=== PATIENT | female | born 1980 | race Caucasian/White ===

== ENCOUNTER → 2016-09-07 | Outpatient (CLI) | payer OTHER | LOC: YCFC.O 15:16 | PROVIDERS: ATTEND Nurse Practitioner Family | DX: J35.8 Other chronic diseases of tonsils and adenoids (principal); J02.9 Acute pharyngitis, unspecified; R50.9 Fever, unspecified ==

== ENCOUNTER 2017-03-31 10:00 | Emergency (ER) | payer OTHER ==
[2017-03-31 10:19] VITALS: TEMP 98.7
--- NOTE | 2017-03-31 10:21 | ED.PDOC ---
History of Present Illness - General Chief Complaint: Abdominal Pain Stated Complaint: R flank discomfort Time Seen by Provider: 03/31/17 10:11 Information Source: patient Exam Limitations: no limitations - History of Present Illness Initial Comments: Ms. arcelia Lara 36 y/o female stated that she stared having achy/sharp flank pain 3 days ago and felt warm and feverish then decided to goto the doctor for possible bladder infection and was prescribed antibiotics Macrobid which temporarily made her feel better but today pain recurred stating flank pain radiating to back went back to her md for re check but was sent over here to ER. Abdominal Pain Onset Location: RLQ, flank - right Pain Radiation: RLQ Quality: moderate, sharpness Timing/Duration: other - 3 days ago Improving Factors: nothing Worsening Factors: eating Associated Symptoms: fever/chills, nausea/vomiting - x 2 Review of Systems - Review of Systems Constitutional: States: no symptoms reported EENTM: States: no symptoms reported Respiratory: States: no symptoms reported Cardiology: States: no symptoms reported Gastrointestinal/Abdominal: States: see HPI Genitourinary: States: see HPI Musculoskeletal: States: no symptoms reported Skin: States: no symptoms reported Neurological: States: no symptoms reported Past Medical History (General) - Patient Medical History Hx Seizures: No Hx Stroke: No Hx Asthma: No Hx of COPD: No Hx Cardiac Disorders: No Hx Congestive Heart Failure: No Hx Pacemaker: No Hx Hypertension: No Hx Diabetes: No Hx MRSA: No Surgical History: cholecystectomy, other - hysterectomy,oral surgery - Vaccination History Hx Tetanus, Diphtheria Vaccination: No Hx Influenza Vaccination: No Hx Pneumococcal Vaccination: No - Social History Hx Tobacco Use: No Hx Alcohol Use: No Hx Substance Use: No Hx Substance Use Treatment: No Hx Depression: No Hx Physical Abuse: No Hx Emotional Abuse: No - Activities of Daily Living Patient Lives Alone: No - family - Female History Patient is a Female of Child Bearing Age (10 -59 yrs old): No - hysterectomy Hx Last Menstrual Period: 09/06/12 Patient : No Family Medical History - Family History Mother Family History: Unknown Living Status: Unknown Hx Family Hypertension: Yes - parents Hx Cardiac Disease: Yes - dad Hx Family Diabetes: Yes - dad Physical Exam - Physical Exam General Appearance: Alert, Anxious, No apparent distress Eyes, Ears, Nose, Throat Exam: PERRL/EOMI, normal ENT inspection, pharynx normal Neck: non-tender, full range of motion, supple Respiratory: chest non-tender, lungs clear, normal breath sounds Cardiovascular/Chest: normal peripheral pulses, regular rate, rhythm, no edema, no murmur Peripheral Pulses: No deficit Gastrointestinal/Abdominal: normal bowel sounds, soft, no organomegaly, tenderness - RLQ Back Exam: CVA tenderness (R) Neurologic: alert, normal mood/affect, oriented x 3 Progress - Progress Progress: 03/31/17 11:27 Vital Signs - 8 hr 03/31/17 10:14 Temperature 98.7 F Pulse Rate [ 85 Left Radial] Respiratory 18 Rate Blood Pressure 135/97 [Left Arm] O2 Sat by Pulse 98 Oximetry - Results/Orders Results/Orders: Laboratory Tests 03/31/17 03/31/17 10:35 10:35 WBC 3.4 L RBC 4.41 Hgb 13.2 Hct 39.5 MCV 89.6 MCH 30.0 MCHC 33.5 RDW 12.8 Plt Count 220 MPV 7.1 L Absolute Neuts (auto) 2.40 Absolute Lymphs (auto) 0.70 L Absolute Monos (auto) 0.20 Absolute Eos (auto) 0.10 Absolute Basos (auto) 0.00 Neutrophils % 71.3 Lymphocytes % 19.1 L Monocytes % 6.2 Eosinophils % 2.6 Basophils % 0.8 Sodium 139 Potassium 4.2 Chloride 107 Carbon Dioxide 24 Anion Gap 12.2 BUN 11 Creatinine 0.73 BUN/Creatinine Ratio 15.1 Random Glucose 92 Serum Osmolality 276.6 Calcium 9.3 Total Bilirubin 1.0 AST 19 ALT 25 Alkaline Phosphatase 69 Serum Total Protein 7.6 Albumin 4.3 Globulin 3.3 Albumin/Globulin Ratio 1.3 Lipase 22 Laboratory Tests 03/31/17 03/31/17 03/31/17 10:35 10:35 11:36 WBC 3.4 L RBC 4.41 Hgb 13.2 Hct 39.5 MCV 89.6 MCH 30.0 MCHC 33.5 RDW 12.8 Plt Count 220 MPV 7.1 L Absolute Neuts (auto) 2.40 Absolute Lymphs (auto) 0.70 L Absolute Monos (auto) 0.20 Absolute Eos (auto) 0.10 Absolute Basos (auto) 0.00 Neutrophils % 71.3 Lymphocytes % 19.1 L Monocytes % 6.2 Eosinophils % 2.6 Basophils % 0.8 Sodium 139 Potassium 4.2 Chloride 107 Carbon Dioxide 24 Anion Gap 12.2 BUN 11 Creatinine 0.73 BUN/Creatinine Ratio 15.1 Random Glucose 92 Serum Osmolality 276.6 Calcium 9.3 Total Bilirubin 1.0 AST 19 ALT 25 Alkaline Phosphatase 69 Serum Total Protein 7.6 Albumin 4.3 Globulin 3.3 Albumin/Globulin Ratio 1.3 Lipase 22 Urine Color Yellow Urine Appearance Clear Urine pH 5.0 Ur Specific Gill <= 1.005 Urine Protein Negative Urine Glucose (UA) Negative Urine Ketones 15 H Urine Blood Negative Urine Nitrite Negative Urine Bilirubin Negative Urine Urobilinogen 0.2 Ur Leukocyte Esterase Negative Urine RBC 0 Urine WBC 0 Ur Epithelial Cells 0-1 Amorphous Sediment 1+ Urine Bacteria 0 - EKG/XRAY/CT CT Ordered: Yes - abd/p-no acute bowel abnormalities;cyst/hemangioma-liver ff up with primary Departure - Departure Clinical Impression: Flank pain, acute Abdominal pain Qualifiers: Abdominal location: right lower quadrant Qualified Code(s): R10.31 - Right lower quadrant pain Time of Disposition: 11:58 Disposition: Discharge to Home or Self Care Departure Forms: ED Discharge - Pt. Copy, Patient Portal Self Enrollment Instructions: DI for Abdominal Pain-Adult Diet: full liquid diet - then to advance as tolerated;Avoid greasy ,spicy.dairy foods until better Referrals: Tomasa Daigle NP [Primary Care Provider] - 1-2 Weeks Prescriptions: Promethazine HCl 50 mg PO Q6HR PRN #20 tab PRN Reason: Nausea Tramadol HCl 100 mg PO Q6HR PRN #20 tab PRN Reason: Pain Home Medications: Ambulatory Orders Epinephrine [Epipen 2-Ceasar] 0.3 mg IJ PRN #0 ml 09/17/12 Cetirizine HCl Syrup [Zyrtec] 10 mg PO DAILY PRN 03/31/17 Promethazine HCl 50 mg PO Q6HR PRN #20 tab 03/31/17 Tramadol HCl 100 mg PO Q6HR PRN #20 tab 03/31/17 Additional Instructions: RETURN TO EMERGENCY ROOM NEEDED;FOLLOW UP WITH PRIMARY MD 04/02/2017 call for appointment if needed
[2017-03-31] MEDS ORDERED: KETOROLAC TROMETHAMINE INJ 30 MG/ML VIAL IV ONE (10:26)
[2017-03-31] MEDS ORDERED: LACTATED RINGERS 1,000 ML IVS ONE (10:26)
[2017-03-31] MEDS ORDERED: ONDANSETRON INJ 4 MG/2 ML VIAL IV ONE (10:36)
--- NOTE | 2017-03-31 11:12 | CT ---
EXAM DESCRIPTION: Abdomen/Pelvis w/Contrast CLINICAL HISTORY: 36 years,Female,pain COMPARISON: None TECHNIQUE: Multiple axial tomographic images were obtained of the abdomen and pelvis with IV contrast and oral contrast. Then reconstructed in sagittal and coronal planes. This exam was performed using radiation doses that are As Low As Reasonably Achievable (ALARA). FINDINGS: The kidneys are unremarkable The adrenal glands are unremarkable . The spleen is unremarkable. The liver demonstrates 2 subcentimeter low-density lesions in the right lobe one anterior one posterior measuring about 7 mm.. The pancreas is unremarkable. The gallbladder surgically absent with some left intrahepatic ductal dilatation up to 5 mm. Which is most likely postsurgical. The included bowel unremarkable including the appendix. There is no free air, free fluid, masses, or significant adenopathy. Surrounding soft tissues and bony elements unremarkable. Lung bases are unremarkable. Uterus surgically absent ovaries appear unremarkable. IMPRESSION: 2 subcentimeter low-density lesions in the liver. Most likely cyst or hemangiomas but cannot exclude any other lesions, recommend 6 month follow-up CT scan of the liver with and without IV contrast and with DELAYED images which can help diagnose hemangiomas.. Electronically signed by: Donovan Manriquez MD 03/31/2017 11:10 AM CDT
[2017-03-31 12:15] VITALS: BP 137/92; O2SAT 99
== END 2017-03-31 12:13 | disposition home or self-care (01) ==
LOC: ER 10:00
DX: R10.31 Right lower quadrant pain (principal)
CPT/HCPCS: 36415; 74177; 80053; 81001; 83690; 85025; J1885; J2405; J7120